=== PATIENT | male | born 1990 | race Caucasian/White ===

== ENCOUNTER 2020-06-25 20:38 | Emergency (ER) | payer SELFPAY ==
--- NOTE | ~2020-06-25 | XR_ITS ---
EXAMINATION: XR chest 2V DATE: 06/25/2020 21:43 INDICATION: Shortness of breath TECHNIQUE: PA and lateral views of the chest were obtained. COMPARISON: Chest radiograph dated 05/17/2019 FINDINGS: Nodular opacity at the left costophrenic angle which inserts central calcification on subsequent CT c onsistent with old granulomatous disease. No other airspace opacities, pulmonary edema, pleural effus ion or pneumothorax. Cardiomediastinal silhouette is normal. Likely physiologic mild anterior wedging at a few levels in the lower thoracic spine. IMPRESSION: 1. No acute cardiopulmonary disease. Reviewed, dictated and finalized at location A.
--- NOTE | ~2020-06-25 | CT_ITS ---
EXAMINATION: CTA chest PE protocol DATE: 06/25/2020 21:43 INDICATION: Shortness of breath TECHNIQUE: Computed tomography (CT) pulmonary angiogram of the chest was performed with 100 mL Omnipa que-350 intravenous contrast. Additional 3D reconstructions utilizing coronal maximum intensity proje ction (MIP) were performed. Automated exposure control and iterative reconstruction technique were em ployed. The dose-length product was 443.28 mGy-cm. COMPARISON: None FINDINGS: Excellent contrast opacification of the pulmonary arteries. There is mild streak artifact from dense contrast in the superior vena cava and right atrium. Minimal scattered respiratory motion artifact wh ich does not significantly limit evaluation. No pulmonary embolism. Mild tree-in-bud pattern along si de a calcified granuloma at the costophrenic angle of the left lower lobe which likely sequela of chr onic infection. No other opacities, pulmonary edema, pleural effusion or pneumothorax. Heart size is normal. No pericardial effusion. Thoracic aorta is normal in caliber with no dissection. Calcified le ft hilar lymph node consistent with old granulomatous disease. No pathologically enlarged thoracic ly mphadenopathy. Visualized upper abdomen is unremarkable. Mild bilateral gynecomastia. Mild lower thor acic dextrocurvature with likely physiologic mild anterior wedging at T10-T12. IMPRESSION: 1. No pulmonary embolism or other acute cardiopulmonary disease. Reviewed, dictated and finalized at location A.
--- NOTE | 2020-06-25 20:49 | ECG_ITS ---
Measurements Intervals [place] Rate: 63 P: 42 MN: 155 QRS: 76 QRSD: 102 T: 49 QT: 377 QTc: 386 Interpretive Statements SINUS RHYTHM MINIMAL Q WAVES- ANTEROLAT/INF LEADS BORDERLINE ECG Electronically Signed On 06-26-2020 7:07:12 CDT by Marty Rodrigues D.O.
[2020-06-25 20:50] VITALS: BP 126/78; PULSE 86; RESP 18; TEMP 36.8; O2SAT 97
[2020-06-25 21:14] LABS: Basophils Absolute Auto 0.06 K/mm3 (0.00-0.10); Basophils Percent Auto 0.7 % (0.0-1.0); Eosinophils Absolute Auto 0.22 K/mm3 (0.02-0.50); Eosinophils Percent Auto 2.6 % (1.0-6.0); Hematocrit 46.5 % (40.0-54.0); Hemoglobin 15.7 g/dL (14.0-18.0); Immature Granulocyte Absolute 0.02 K/mm3 (0.00-0.00); Immature Granulocyte Percent A 0.2 % (0.0-0.0); Lymphocytes Absolute Auto 2.27 K/mm3 (1.10-4.50); Lymphocytes Percent Auto 27.2 % (18.0-42.0); Mean Corpuscular HGB Conc 33.8 g/dL (32.0-36.0); Mean Corpuscular Hemoglobin 29.5 pg (27.0-31.0); Mean Corpuscular Volume 87.4 fL (78.0-102.0); Mean Platelet Volume 10.9 fl (8.7-11.0); Monocytes Percent Auto 9.6 % (2.0-11.0); Neutrophils Percent Auto 59.7 % (50.0-70.0); Platelet Count Result 275 K/mm3 (150-420); Red Blood Count 5.32 M/mm3 (4.70-6.10); Red Cell Distribution Width 12.9 % (11.6-14.4); White Blood Count 8.4 K/mm3 (4.8-10.8)
[2020-06-25 21:31] LABS: D Dimer 0.23 mg/L (0.19-0.50); INR 1.1; Partial Thromboplastin Time 31.7 SEC (22.3-31.6); Prothrombin Time 11.8 Seconds (9.64-11.0)
[2020-06-25 21:33] LABS: Anion Gap 9 mmol/L (8-16); Blood Urea Nitrogen 20 mg/dL (7-18); Carbon Dioxide 28 mmol/L (21-32); Chloride 102 mmol/L (98-108); Potassium 3.9 mmol/L (3.5-5.1); Sodium 139 mmol/L (136-145)
[2020-06-25 21:34] LABS: Alanine Aminotransferase 33 U/L (16-63); Albumin Level 3.5 g/dL (3.4-5.0); Alkaline Phosphatase 91 U/L (46-116); Aspartate Amino Transferase 45 U/L (15-37); Bilirubin,Total 0.8 mg/dL (0.00-1.00); Calcium 8.9 mg/dL (8.5-10.1); Estimated CRCL calculation 86 ml/min; Estimated Glomerular Filt Rate > 60; Glucose 101 mg/dL (70-99); Osmolality Calculated 290 mOsm/kg (285-295); Troponin I < 0.02 ng/mL (0.00-0.056)
[2020-06-25 21:35] LABS: Influenza Control Valid (Valid)
--- NOTE | 2020-06-25 21:35 | ED.SOB ---
HPI - SOB/Dyspnea General Chief Complaint: Shortness of Breath/Dyspnea Stated Complaint: 30YO male w/ SOB associated with cough for 4 days. He admits he is a meth user and comes into Ed for evaluation. Related Data Allergies Allergy/AdvReac Type Severity Reaction Status Date / Time Penicillins Allergy Unknown Verified 06/25/20 21:03 Review of Systems Review of Systems: All systems reviewed & are unremarkable except as noted in HPI and below Constitutional: Constitutional: Reports as per HPI, Denies chills and Denies fever(s) Eyes: Eyes: Reports as per HPI ENT: Reports system reviewed and no additional complaints, except as documented, Denies dysphagia, Denies dizziness, Denies epistaxis, Denies nasal congestion and Denies sore throat Cardiovascular: Cardiovascular: Reports as per HPI and Reports no additional cardiovascular complaints Respiratory: Respiratory: Reports as per HPI, Reports chest congestion, Reports cough and Reports dyspnea Gastrointestinal: Gastrointestinal: Reports as per HPI and Reports no additional gastrointestinal complaints Genitourinary: Genitourinary: Reports no additional male genitourinary complaints Musculoskeletal: Musculoskeletal: Reports no additional musculoskeletal complaints [facility] Social History Social History (Updated 06/25/20 @ 22:07 by Saw Napier MD) Smoking packs per day: 1 Smoking cigarettes per day: 20.0 Years smoked: 13 Smoking pack-years: 13.00 Smoking status: Current every day smoker Second hand tobacco smoke exposure: Yes Alcohol intake: current Substance use: current Substance use type: methamphetamine Living arrangements: with family Occupation/Education: unemployed Sexual Orientation (if Verbalized by the Patient): Straight or Heterosexual Exam Const: General: no acute distress and alert Orientation/consciousness: patient oriented x3 HENMT: Head: normal to inspection Eyes: Conjunctivae: conjunctivae normal Pupils: Equal, round and reactive pupils present Neck: Neck: normal visual inspection Chest: Chest palpation & inspection: normal inspection of the chest Resp: Effort & Inspection: normal respiratory effort Other: Coarse Breath Sounds Cardio: Rate: regular rate Rhythm: regular rhythm GI: Inspection: non-distended GI Palp: Yes Soft to palpation and No Tenderness to palpation present (GI) : General: Yes no CVA tenderness Testes: Testes normal Back/Spine/Pelvis: Back: no CVA tenderness Skin: General skin exam: normal color Neuro: General: patient oriented x3, moves all extremities, no focal motor deficits and CN's II-XI intact bilaterally Extrem: General: normal to inspection Psych: Mental Status: mental status grossly normal Course Course Emergency Course: Labs and w/u reviewed. Nothing acute found on workup. D/c home on self quarantine till COVID test results are called to him. Vital Signs Vital signs: Vital Signs Temperature 98.3 F 06/25/20 20:50 Pulse Rate 86 06/25/20 20:50 Respiratory Rate 18 06/25/20 20:50 Blood Pressure 126/78 06/25/20 20:50 Pulse Oximetry 97 06/25/20 20:50 Temperature 98.3 F 06/25/20 20:50 Pulse Rate 86 06/25/20 20:50 Respiratory Rate 18 06/25/20 20:50 Blood Pressure 126/78 06/25/20 20:50 Pulse Oximetry 97 06/25/20 20:50 MDM - SOB/Dyspnea Differential Diagnosis Differential diagnosis: Likely community acquired pneumonia, asthma with exacerbation and pulmonary embolism Medical Records Attestation: I reviewed the patient's medical records. Lab Data Attestation: I reviewed the patient's lab results. Result diagrams: 06/25/20 21:10 06/25/20 21:10 Labs: Lab Results 06/25/20 06/25/20 06/25/20 Range/Units 20:56 21:10 21:10 WBC 8.4 (4.8-10.8) K/mm3 RBC 5.32 (4.70-6.10) M/mm3 Hgb 15.7 (14.0-18.0) g/dL Hct 46.5 (40.0-54.0) % MCV 87.4 (78.0-102.0) fL MCH 29.5 (27.0-31.0) pg
[2020-06-25 21:37] LABS: BNP 12.8 pg/mL (0-100)
--- NOTE | 2020-06-25 21:58 | PC.NURSE ---
Pt refuses to wear mask even when leaving the department.
--- NOTE | 2020-06-25 22:00 | PC.NURSE ---
Pt pulled out iv, and laughing inappropriately
[2020-06-25 22:34] VITALS: BP 104/53; PULSE 80; RESP 18; O2SAT 98
[2020-06-28 13:02] LABS: SARS-CoV-2 RNA PCR Negative
== END 2020-06-25 22:37 | disposition home or self-care (01) ==
PROVIDERS: Emergency Provider Family Medicine
DX: J20.9 Acute bronchitis, unspecified (principal)
CPT/HCPCS: 36415; 71046; 71275; 80053; 83880; 84484; 85025; 85380; 85610; 85730; 87081; 87635; 87804; 87880; 93005; 99283; 99284; C9803; Q9965; U0003

== ENCOUNTER 2020-09-28 02:21 | Emergency (ER) | payer SELFPAY ==
--- NOTE | ~2020-09-28 | XR_ITS ---
EXAMINATION: XR chest 1V portable 09/28/2020 02:47 INDICATION: Shortness of breath PROCEDURE: AP portable chest COMPARISON: 05/26/2016 FINDINGS: The lungs are clear. The cardiomediastinal silhouette is within normal limits. There are no pleural effusions. There is no pneumothorax suspected. IMPRESSION: 1: NO ACUTE CARDIOPULMONARY DISEASE. Reviewed, dictated and finalized at location A. T INTERN
[2020-09-28 02:21] VITALS: BP 102/58; PULSE 112; RESP 22; TEMP 36.8; O2SAT 100
--- NOTE | 2020-09-28 02:27 | ECG_ITS ---
Measurements Intervals [place] Rate: 115 P: 80 MT: 171 QRS: 79 QRSD: 95 T: 74 QT: 333 QTc: 461 Interpretive Statements SINUS TACHYCARDIA BASELINE WANDER- V4-V5 ABNORMAL ECG Electronically Signed On 09-28-2020 7:19:08 CHIEF CLOTH FINISHING RANGE OPERATOR by Marty Rodrigues D.O.
[2020-09-28 02:40] LABS: Eosinophils Absolute Auto 0.21 K/mm3 (0.02-0.50); Eosinophils Percent Auto 2.1 % (1.0-6.0); Hematocrit 45.3 % (40.0-54.0); Hemoglobin 15.5 g/dL (14.0-18.0); Immature Granulocyte Absolute 0.05 K/mm3 (0.00-0.00); Immature Granulocyte Percent A 0.5 % (0.0-0.0); Lymphocytes Absolute Auto 2.13 K/mm3 (1.10-4.50); Lymphocytes Percent Auto 21.1 % (18.0-42.0); Mean Corpuscular HGB Conc 34.2 g/dL (32.0-36.0); Mean Corpuscular Hemoglobin 29.4 pg (27.0-31.0); Mean Corpuscular Volume 85.8 fL (78.0-102.0); Mean Platelet Volume 10.8 fl (8.7-11.0); Monocytes Absolute Auto 1.19 K/mm3 (0.10-0.90); Monocytes Percent Auto 11.8 % (2.0-11.0); Neutrophils Absolute Auto 6.4 K/mm3 (1.7-7.2); Neutrophils Percent Auto 63.5 % (50.0-70.0); Platelet Count Result 318 K/mm3 (150-420); Red Blood Count 5.28 M/mm3 (4.70-6.10); Red Cell Distribution Width 13.2 % (11.6-14.4); White Blood Count 10.1 K/mm3 (4.8-10.8)
--- NOTE | 2020-09-28 02:51 | ED.ARRPALP ---
HPI - Arrhythmia/Palpitations General Chief Complaint: Shortness of Breath/Dyspnea Stated Complaint: SHORTNESS OF BREATH Source: patient and RN notes reviewed Mode of arrival: EMS Limitations: no limitations History of Present Illness HPI narrative: The patient states he has been having increased rapid heart rate for 6 months. EMS called because of heart rate in the 160s. On arrival patient has heart rate of 112. Patient recently at another emergency room was diagnosed with anxiety given Vistaril. tonight he feels short of breath his face fingers numb and tingly. MD complaint: heart racing Onset (ago): month(s) (6) Duration: intermittent Severity: moderate Context: occurred during rest Related Data Home Medications Medication Instructions Recorded Confirmed No Home Medications 09/28/20 09/28/20 Allergies Allergy/AdvReac Type Severity Reaction Status Date / Time Penicillins Allergy Unknown Verified 06/25/20 21:03 Review of Systems Constitutional: Constitutional: Denies chills, Denies fever(s) and Denies weakness Eyes: Eyes: Reports no additional eye complaints ENT: Reports system reviewed and no additional complaints, except as documented Respiratory: Respiratory: Reports as per HPI Gastrointestinal: Gastrointestinal: Reports no additional gastrointestinal complaints Genitourinary: Genitourinary: Reports no additional male genitourinary complaints Musculoskeletal: Musculoskeletal: Reports no additional musculoskeletal complaints Integumentary/Breasts: Skin/Breast: Reports system reviewed and no additional complaints, except as docu Neurologic: Reports system reviewed and no additional complaints, except as documented Psychiatric: Psychiatric: Reports no additional psychiatric complaints PMFSH Past Medical History Medical History (Updated 09/28/20 @ 04:42 by Nba Hoffman MD) Anxiety with depression Bipolar 1 disorder Surgical History Surgical History (Updated 09/28/20 @ 03:01 by Nba Hoffman MD) H/O umbilical hernia repair Social History Social History Smoking packs per day: 1 Smoking cigarettes per day: 20.0 Years smoked: 13 Smoking pack-years: 13.00 Smoking status: Current every day smoker Second hand tobacco smoke exposure: Yes Alcohol intake: current Substance use: current Substance use type: methamphetamine Exam Const: Nutritional Appearance: well nourished and thin Other: very anxious. Seems to be trembling. HENMT: Head: normal to inspection Ears: external ears normal Eyes: Conjunctivae: conjunctivae normal EOM: EOMs intact bilaterally Neck: Neck: normal visual inspection Resp: Effort & Inspection: normal respiratory effort Auscultation: clear to auscultation bilaterally Cardio: Rate: regular rate and tachycardic GI: GI Palp: Yes Soft to palpation and No Tenderness to palpation present (GI) Auscultation: normal bowel sounds Back/Spine/Pelvis: Cervical Spine: cervical ROM normal Thoracic/Lumbar Spine: thoraco-lumbar ROM normal Skin: General skin exam: normal color Other: Multiple tattoos Neuro: General: patient oriented x3, moves all extremities and no focal motor deficits Speech: normal speech Gait exam (Neuro): Normal gait present Extrem: General: normal to inspection and no clubbing, cyanosis or edema Psych: Appearance: grossly normal and well kempt Affect: Anxious affect present Thought content: Yes Normal thought content present Course Course Emergency Course: Patient got tired of waiting and left AMA. Vital Signs Vital signs: Vital Signs Temperature 36.8 C 09/28/20 02:21 Pulse Rate 112 H 09/28/20 02:21 Respiratory Rate 22 H 09/28/20 02:21 Blood Pressure 102/58 L 09/28/20 02:21 Pulse Oximetry 100 09/28/20 02:21 Temperature 36.8 C 09/28/20 02:21 Pulse Rate 86 09/28/20 03:16 Respiratory Rate 20 09/28/20 03:16 Blood Pressure 106/60
--- NOTE | 2020-09-28 02:52 | PC.NURSE ---
While in the room patient stated I lied to that BH I smoked meth three days ago.
[2020-09-28 02:58] LABS: D Dimer 1.05 mg/L (0.19-0.50)
[2020-09-28 03:10] LABS: Alanine Aminotransferase 33 U/L (16-63); Albumin Level 4.1 g/dL (3.4-5.0); Alkaline Phosphatase 97 U/L (46-116); Anion Gap 16 mmol/L (8-16); Aspartate Amino Transferase 34 U/L (15-37); Bilirubin,Total 1.3 mg/dL (0.00-1.00); Blood Urea Nitrogen 18 mg/dL (7-18); Calcium 9.5 mg/dL (8.5-10.1); Carbon Dioxide 20 mmol/L (21-32); Chloride 104 mmol/L (98-108); Estimated Glomerular Filt Rate > 60; Glucose 86 mg/dL (70-99); Magnesium 2.2 mg/dL (1.8-2.4); Osmolality Calculated 290 mOsm/kg (285-295); Potassium 3.4 mmol/L (3.5-5.1); Sodium 140 mmol/L (136-145); Thyroid Stimulating Hormone 2.42 uIU/mL (0.36-3.74); Total Protein 8.7 g/dL (6.4-8.2)
[2020-09-28 03:11] LABS: Troponin I < 0.02 ng/mL (0.00-0.056)
[2020-09-28 03:16] VITALS: BP 106/60; PULSE 86; RESP 20; O2SAT 95
--- NOTE | 2020-09-28 03:35 | PC.NURSE ---
pt up from cot. ripped off monitor wires, im going home, because i can. Is this group home? you cant keep me here erp notified of same. IV site removed, dressing and coban applied ', AMA form signed. Pt wanting to call someone, attempted with no success. Pt states, im about to go ballistic around here, you F-----B---!!. Explained signed AMA and was free to leave facility. pt departed ambulatory.
[2020-09-28 03:36] LABS: Add Urine Microscopic? YES; Appearance Urine Clear (Clear); Bilirubin Urine 1+ (Negative); Blood Urine Negative (Negative); Color Urine Yellow (Yellow); Glucose Urine UA Negative (Negative); Ketones Urine 1+ (Negative); Leukocyte Esterase Ur Negative LEU/UL (Negative); Nitrate Urine Negative (Negative); Protein Urine 1+ (Negative); pH Urine 8.5 (5.0-8.0)
[2020-09-28 03:42] LABS: Bacteria Urine 1+ /hpf; RBC Urine 0-2 /hpf (0-2); Squamous Epithelial Cell Urine Few /hpf (Few)
[2020-09-28 03:43] LABS: Amphetamine Screen Urine Positive (Negative); Barbiturate Screen Urine Negative (Negative); Benzodiazepines Screen Urine Negative (Negative); Cannabinoid Screen Urine Positive (Negative); Cocaine Screen Urine Negative (Negative); Methadone Screen Urine Negative (Negative); Opiate Screen Urine Negative (Negative); Phencyclidine Screen Urine Negative (Negative)
--- NOTE | 2020-09-28 04:08 | PC.NURSE ---
no orders placed for ct scan for pe study or benadryl as ordered per dr ann due to signed ama.
== END 2020-09-28 03:41 | disposition left against medical advice (07) ==
PROVIDERS: Emergency Provider Emergency Medicine
DX: F15.10 Other stimulant abuse, uncomplicated (principal); F41.8 Other specified anxiety disorders
CPT/HCPCS: 36415; 71045; 80053; 80307; 81001; 83735; 84443; 84484; 85025; 85380; 93005; 99283; 99284

== ENCOUNTER 2021-07-16 00:57 | Emergency (ER) | payer SELFPAY ==
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
[2021-07-16 01:06] VITALS: BP 130/86; PULSE 90; RESP 18; TEMP 36.6; O2SAT 99
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
[2021-07-16] MEDS: KETOROLAC (*BKC) 60 MG/2 ML VIAL IM (01:30)
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
[2021-07-16 02:18] VITALS: BP 132/88; PULSE 66; RESP 18; TEMP 36.4; O2SAT 99
== END 2021-07-16 02:24 | disposition home or self-care (01) ==
PROVIDERS: Emergency Provider Emergency Medicine
DX: G44.309 Post-traumatic headache, unspecified, not intractable (principal)
CPT/HCPCS: 70450; 72125; 96372; 99283; 99284; J1885

== ENCOUNTER 2021-08-21 04:11 | Emergency (ER) | payer SELFPAY ==
--- NOTE | ~2021-08-21 | CT_ITS ---
EXAMINATION: CT diagnostic chest wo con DATE: 08/21/2021 05:45 INDICATION: Acute on chronic shortness of breath TECHNIQUE: Computed tomography (CT) of the chest was performed without intravenous contrast. The dose -length product was 383.08 mGy-cm. Automated exposure control and iterative reconstruction technique were employed. COMPARISON: CT dated 06/25/2020 FINDINGS: Heart size normal. No significant pleural or pericardial effusion. No thoracic lymphadenopa thy. There is gynecomastia. No pneumothorax. No focal airspace consolidation. No endobronchial lesion s. Partially calcified left lower lobe nodule, consistent with chronic granulomatous disease. Mild de xtrocurvature of the thoracic spine. IMPRESSION: 1. No acute cardiopulmonary disease. Reviewed, dictated and finalized at location A.
[2021-08-21 04:11] VITALS: BP 118/74; PULSE 111; RESP 20; TEMP 36.8; O2SAT 100
[2021-08-21 04:15] VITALS: PULSE 111
--- NOTE | 2021-08-21 04:31 | ECG_ITS ---
Measurements Intervals [place] Rate: 125 P: 85 IN: 176 QRS: 83 QRSD: 98 T: 82 QT: 308 QTc: 444 Interpretive Statements SINUS TACHYCARDIA MINIMAL Q WAVES- ANTEROLAT/INF LEADS BASELINE ARTIFACT- I, II, III, AVR, AVL, AVF, V1-V2 ABNORMAL ECG Electronically Signed On 08-22-2021 7:45:17 CDT by Marty Rodrigues D.O.
--- NOTE | 2021-08-21 04:38 | ED.SOB ---
HPI - SOB/Dyspnea General Chief Complaint: Shortness of Breath/Dyspnea Stated Complaint: sob Time Seen by Provider: 08/21/21 04:15 Source: patient and RN notes reviewed Mode of arrival: ambulatory Limitations: no limitations History of Present Illness MD elicited complaint: shortness of breath Onset (ago): year(s) (2) Context: other (mildly increased SOB x this early am. no acute fever, wheezing) Timing: intermittent Severity: mild Exacerbating factors: nothing Relieving factors: nothing Associated symptoms: denies other symptoms Treatment prior to arrival: none Related Data Home oxygen amount: none Allergies Allergy/AdvReac Type Severity Reaction Status Date / Time Penicillins Allergy Rash Verified 08/21/21 04:21 Review of Systems Review of Systems: All systems reviewed & are unremarkable except as noted in HPI and below PMFSH Past Medical History Medical History Breathlessness Social History Social History Substance use type: marijuana and methamphetamine Exam Const: General: no acute distress and alert Nutritional Appearance: well nourished Orientation/consciousness: patient oriented x3 HENMT: Head: normal to inspection Ears: external ears normal and TM's normal bilaterally Mouth: Yes lip normal and Yes moist mucous membranes Teeth and gingiva: dentition normal Eyes: Conjunctivae: conjunctivae normal Pupils: Equal, round and reactive pupils present EOM: EOMs intact bilaterally Neck: Neck: normal visual inspection and no lymphadenopathy Chest: Chest palpation & inspection: normal inspection of the chest Resp: Effort & Inspection: normal respiratory effort Auscultation: clear to auscultation bilaterally Cardio: Rate: regular rate Rhythm: regular rhythm GI: GI Palp: Yes Soft to palpation and No Tenderness to palpation present (GI) : General: Yes bladder normal to palpation and Yes no CVA tenderness Male General Exam: Yes normal external exam Skin: General skin exam: normal color Neuro: General: patient oriented x3, moves all extremities, no meningeal signs, no focal motor deficits and CN's II-XI intact bilaterally Extrem: General: normal to inspection Psych: Mental Status: mental status grossly normal Affect: normal affect Attitude: cooperative Thought content: Yes Normal thought content present Course Course Emergency Course: Pt was stable in the ED with less tachycardia and no acute SOB. Pt was endorsed to Dr Hollingsworth at 0700. Reevaluation(s) Reevaluation #1: Pt was comfortable in the ED. Date: 08/23/21 Time: 05:10 Vital Signs Vital signs: Vital Signs Temperature 36.8 C 08/21/21 04:11 Pulse Rate 111 H 08/21/21 04:11 Respiratory Rate 20 08/21/21 04:11 Blood Pressure 118/74 08/21/21 04:11 Pulse Oximetry 100 08/21/21 04:11 Temperature 36.8 C 08/21/21 06:19 Pulse Rate 121 H 08/21/21 07:34 Respiratory Rate 20 08/21/21 07:34 Blood Pressure 123/81 08/21/21 07:34 Pulse Oximetry 100 08/21/21 07:34 MDM - SOB/Dyspnea Differential Diagnosis Differential diagnosis: Likely acute exacerbation of chronic obstructive airways disease, community acquired pneumonia and asthma with exacerbation Medical Records Attestation: I reviewed the patient's medical records. Lab Data Result diagrams: 08/21/21 05:16 08/21/21 05:16 Labs: Lab Results 08/21/21 08/21/21 08/21/21 Range/Units 05:16 05:16 05:16 WBC 15.2 H (4.8-10.8) K/mm3 RBC 6.05 (4.70-6.10) M/mm3 Hgb 17.5 (14.0-18.0) g/dL Hct 51.7 (40.0-54.0) % MCV 85.5 (78.0-102.0) fL MCH 28.9 (27.0-31.0) pg MCHC 33.8 (32.0-36.0) g/dL RDW 13.7 (11.6-14.4) % Plt Count 328 (150-420) K/mm3 MPV 10.7 (8.7-11.0) fl Immature Gran % (Auto) 0.5 H (0.0-0.0) % Neut % (Auto) 74.0 H (50.0-70.0) % Lymph % (Auto) 16.1 L
[2021-08-21] MEDS: SODIUM CHLORIDE 0.9% IV 500 ML 999 ML IV CONT (04:56)
--- NOTE | 2021-08-21 04:59 | PC.NURSE ---
pt uncooperative and will not follow directions, instructions given in regards to ekg placement and reasoning for ekg. after multiple instructions given pt finally sat down to let RN apply ekg lead and monitoring device.
[2021-08-21 05:00] LABS: Base Excess ABG 2.6 mmol/L (0-2); HCO3 ABG 20.4 mmol/L (23-29); Oxygen Content ABG 22.4 %vol (16.0-22.0); Oxygen Saturation ABG 98.4 % (95-97); Oxyhemoglobin 95.5 % (94-100); Total Hemoglobin 16.6 g/dL (12.0-18.0)
[2021-08-21 05:10] VITALS: BP 105/76; PULSE 91; RESP 20; O2SAT 100
[2021-08-21 05:14] LABS: pH ABG 7.65 (7.35-7.45)
[2021-08-21 05:15] LABS: Device ROOM AIR; Modified Allen's Test Pass; Site Drawn LEFT RADIAL
[2021-08-21 05:22] LABS: Basophils Absolute Auto 0.09 K/mm3 (0.00-0.10); Basophils Percent Auto 0.6 % (0.0-1.0); Eosinophils Absolute Auto 0.12 K/mm3 (0.02-0.50); Eosinophils Percent Auto 0.8 % (1.0-6.0); Hematocrit 51.7 % (40.0-54.0); Hemoglobin 17.5 g/dL (14.0-18.0); Immature Granulocyte Absolute 0.07 K/mm3 (0.00-0.00); Immature Granulocyte Percent A 0.5 % (0.0-0.0); Lymphocytes Absolute Auto 2.46 K/mm3 (1.10-4.50); Lymphocytes Percent Auto 16.1 % (18.0-42.0); Mean Corpuscular HGB Conc 33.8 g/dL (32.0-36.0); Mean Corpuscular Hemoglobin 28.9 pg (27.0-31.0); Mean Corpuscular Volume 85.5 fL (78.0-102.0); Mean Platelet Volume 10.7 fl (8.7-11.0); Monocytes Absolute Auto 1.22 K/mm3 (0.10-0.90); Neutrophils Absolute Auto 11.3 K/mm3 (1.7-7.2); Platelet Count Result 328 K/mm3 (150-420); Red Blood Count 6.05 M/mm3 (4.70-6.10); Red Cell Distribution Width 13.7 % (11.6-14.4); White Blood Count 15.2 K/mm3 (4.8-10.8)
[2021-08-21 05:30] LABS: Amphetamine Screen Urine Negative (Negative); Barbiturate Screen Urine Negative (Negative); Benzodiazepines Screen Urine Negative (Negative); Cannabinoid Screen Urine Positive (Negative); Cocaine Screen Urine Negative (Negative); Methadone Screen Urine Negative (Negative); Opiate Screen Urine Negative (Negative); Phencyclidine Screen Urine Negative (Negative)
[2021-08-21 05:32] LABS: Alanine Aminotransferase 57 U/L (16-63); Albumin Level 4.1 g/dL (3.4-5.0); Alkaline Phosphatase 148 U/L (46-116); Anion Gap 17 mmol/L (8-16); Aspartate Amino Transferase 23 U/L (15-37); Bilirubin,Total 0.7 mg/dL (0.00-1.00); Blood Urea Nitrogen 8 mg/dL (7-18); Calcium 9.8 mg/dL (8.5-10.1); Carbon Dioxide 24 mmol/L (21-32); Chloride 101 mmol/L (98-108); Estimated CRCL calculation 85 ml/min; Estimated Glomerular Filt Rate > 60; Glucose 92 mg/dL (70-99); Osmolality Calculated 292 mOsm/kg (285-295); Potassium 3.3 mmol/L (3.5-5.1); Sodium 142 mmol/L (136-145); Total Protein 9.1 g/dL (6.4-8.2); Troponin I 6.3 ng/L (0.00-60.4)
[2021-08-21 05:33] LABS: Ethanol < 3 mg/dL (0-6)
[2021-08-21 06:19] VITALS: BP 121/80; PULSE 89; RESP 20; TEMP 36.8; O2SAT 98
[2021-08-21] MEDS: POTASSIUM CHLORIDE 20 MEQ TABLET PO (06:51)
[2021-08-21 06:54] VITALS: BP 123/81; PULSE 89; RESP 20; O2SAT 100
--- NOTE | 2021-08-21 07:08 | PC.NURSE ---
report to [facility] [place] and dr davis
[2021-08-21 07:34] VITALS: BP 123/81; PULSE 121; RESP 20; O2SAT 100
== END 2021-08-21 07:36 | disposition home or self-care (01) ==
PROVIDERS: Emergency Medicine; Emergency Provider Emergency Medicine
DX: R06.81 Apnea, not elsewhere classified (principal)
CPT/HCPCS: 36415; 36600; 71250; 80053; 80307; 82805; 84484; 85025; 93005; 99283; 99284; A9270; J7040